=== PATIENT | female | born 1950 | race Hispanic/Latino ===

== ENCOUNTER 2017-08-05 16:05 | Inpatient (IN) | payer MEDICARE ==
[~2017-08-05] VITALS: Ht 160 cm; Wt 77.6 kg
[2017-08-05 16:26] LABS: BASOPHILS % (AUTO) 0.4 % (0.0-5.0); EOSINOPHILS % (AUTO) 0.5 % (0.0-8.0); MEAN CORPUSCULAR HEMOGLOBIN 31.1 pg (27.0-33.0); MEAN CORPUSCULAR HGB CONC 34.6 g/dL (32.0-36.0); MEAN CORPUSCULAR VOLUME 89.9 fL (79-99); MONOCYTES % (AUTO) 5.1 % (3.0-13.0); PLATELET COUNT (AUTO) 317 K/uL (130-400); RED BLOOD CELL COUNT(AUTO) 4.56 MIL/uL (4.00-5.50); RED CELL DISTRIBUTION WIDTH 12.6 % (11.0-15.5); WHITE BLOOD COUNT (AUTO) 10.2 K/uL (4.8-10.8)
[2017-08-05 16:29] LABS: CREATININE 0.9 mg/dL (0.5-1.5); POTASSIUM 4.3 mmol/L (3.5-5.1)
[2017-08-05 16:30] LABS: INR 0.96 (0.85-1.15); PARTIAL THROMBOPLASTIN TIME 26.9 SEC (26.3-35.5); PROTHROMBIN TIME 10.1 SEC (9.6-11.6)
[2017-08-05 16:51] LABS: B-TYPE NATRIURETIC PEPTIDE 19 pg/mL (0-100)
[2017-08-05 16:59] LABS: ALBUMIN 3.9 g/dL (3.5-5.0); BILIRUBIN,TOTAL 0.5 mg/dL (0.2-1.0); CREATINE KINASE MB 0.9 ng/mL (0.5-3.6); TOTAL PROTEIN, SERUM 8.4 g/dL (6.0-8.3)
[2017-08-05] MEDS ORDERED: ISOVUE-370 50ML VIAL IV ONE (17:14)
[2017-08-05] MEDS ORDERED: FUROSEMIDE 10 MG/ML 2ML VIAL ONE (23:55)
[2017-08-06] VITALS (7 sets, daily range): BP systolic 100–142; BP diastolic 38–79
[2017-08-06] MEDS ORDERED: SODIUM CHLORIDE 0.9% 10 ML VIAL IVP PRN (00:30)
[2017-08-06] MEDS ORDERED: TRAM50TA4 PO (00:42)
[2017-08-06] MEDS ORDERED: METF500T6 PO (00:42)
[2017-08-06] MEDS ORDERED: PREG75 PO (00:42)
[2017-08-06] MEDS ORDERED: TRAMADOL HCL 50 MG TABLET ONE (00:49)
[2017-08-06] MEDS ORDERED: PREGABALIN 75 MG CAPSULE ONE (00:50)
[2017-08-06] MEDS: SODIUM CHLORIDE 0.9% 10 ML VIAL IVP SCH ×3 (05:33→21:33)
[2017-08-06 06:05] LABS: HEMATOCRIT 37.2 % (36-48); MEAN CORPUSCULAR HEMOGLOBIN 31.2 pg (27.0-33.0); MEAN CORPUSCULAR HGB CONC 34.8 g/dL (32.0-36.0); MEAN CORPUSCULAR VOLUME 89.7 fL (79-99); PLATELET COUNT (AUTO) 286 K/uL (130-400); RED BLOOD CELL COUNT(AUTO) 4.15 MIL/uL (4.00-5.50); RED CELL DISTRIBUTION WIDTH 12.4 % (11.0-15.5); WHITE BLOOD COUNT (AUTO) 9.8 K/uL (4.8-10.8)
[2017-08-06 06:07] LABS: CREATININE 0.9 mg/dL (0.5-1.5)
[2017-08-06] MEDS ORDERED: FUROSEMIDE 10 MG/ML 2ML VIAL IVP SCH (09:00)
[2017-08-06] MEDS: PREGABALIN 75 MG CAPSULE PO SCH ×2 (09:13→21:33)
[2017-08-06] MEDS: TRAMADOL HCL 50 MG TABLET PO PRN ×2 (09:13→14:17)
[2017-08-06 15:19] LABS: MAGNESIUM 1.6 mg/dL (1.80-2.40); POTASSIUM 4.1 mmol/L (3.5-5.1)
[2017-08-06] MEDS ORDERED: MAGNESIUM 2GM PREMIX 50ML 50 ML IV SCH (19:00)
[2017-08-07] MEDS ORDERED: LEVO50TA11 PO (02:49)
[2017-08-07 04:00] VITALS: BP 127/70
[2017-08-07 05:32] LABS: BASOPHILS % (AUTO) 0.6 % (0.0-5.0); EOSINOPHILS % (AUTO) 1.1 % (0.0-8.0); HEMATOCRIT 37.2 % (36-48); MEAN CORPUSCULAR HEMOGLOBIN 31.4 pg (27.0-33.0); MEAN CORPUSCULAR HGB CONC 35.1 g/dL (32.0-36.0); MEAN CORPUSCULAR VOLUME 89.6 fL (79-99); NEUTROPHILS % (AUTO) 46.3 % (40.0-77.0); PLATELET COUNT (AUTO) 279 K/uL (130-400); RED BLOOD CELL COUNT(AUTO) 4.15 MIL/uL (4.00-5.50); RED CELL DISTRIBUTION WIDTH 12.5 % (11.0-15.5); WHITE BLOOD COUNT (AUTO) 10.2 K/uL (4.8-10.8)
[2017-08-07 05:44] LABS: INR 0.98 (0.85-1.15); PARTIAL THROMBOPLASTIN TIME 25.7 SEC (26.3-35.5); PROTHROMBIN TIME 10.1 SEC (9.6-11.6)
[2017-08-07] MEDS: SODIUM CHLORIDE 0.9% 10 ML VIAL IVP SCH ×3 (05:44→22:00)
[2017-08-07 07:00] VITALS: BP 110/61
[2017-08-07] MEDS: PREGABALIN 75 MG CAPSULE PO SCH ×2 (08:52→21:32)
[2017-08-07 11:00] VITALS: BP 122/68
[2017-08-07] MEDS ORDERED: LIDOCAINE HCL-MPF 1% 2ML VIAL ONE (13:54)
[2017-08-07] MEDS: TRAMADOL HCL 50 MG TABLET PO PRN ×2 (15:37→21:34)
[2017-08-07 17:33] LABS: APPEARANCE BODY FLUID CLOUDY (CLEAR); COLOR,BODY FLUID AMBER (LT YELLOW); SPECIMENTYPE,BODY FLUID PLEURAL FLUID
[2017-08-07 17:41] LABS: TOTAL VOLUME,BODY FLUID 280 mL
[2017-08-07 17:53] LABS: BODY FLUID WBC 660 /cu. mm.
[2017-08-07 17:54] LABS: BODY FLUID RBC 3875 /cu. mm.
[2017-08-07 17:57] LABS: GLUCOSE,BODY FLUID 208 mg/dL (1-40)
[2017-08-07 18:13] LABS: BF LYMPHOCYTE 95 %; BF MONOCYTE 5 %
[2017-08-07 19:07] VITALS: BP 118/68
[2017-08-07 20:00] VITALS: BP 139/69
[2017-08-08] VITALS (7 sets, daily range): BP systolic 116–139; BP diastolic 69–83
[2017-08-08] MEDS: SODIUM CHLORIDE 0.9% 10 ML VIAL IVP SCH ×3 (05:19→16:50)
[2017-08-08] MEDS: PREGABALIN 75 MG CAPSULE PO SCH ×2 (09:49→21:44)
[2017-08-08] MEDS: TRAMADOL HCL 50 MG TABLET PO PRN (09:50)
[2017-08-09 03:12] VITALS: BP 119/65
[2017-08-09 05:21] LABS: BASOPHILS % (AUTO) 0.4 % (0.0-5.0); EOSINOPHILS % (AUTO) 1.3 % (0.0-8.0); HEMATOCRIT 36.8 % (36-48); LYMPHOCYTES % (AUTO) 45.2 % (21.0-51.0); MEAN CORPUSCULAR HEMOGLOBIN 31.6 pg (27.0-33.0); MEAN CORPUSCULAR VOLUME 90.5 fL (79-99); MONOCYTES % (AUTO) 6.9 % (3.0-13.0); NEUTROPHILS % (AUTO) 46.2 % (40.0-77.0); PLATELET COUNT (AUTO) 260 K/uL (130-400); RED BLOOD CELL COUNT(AUTO) 4.07 MIL/uL (4.00-5.50); RED CELL DISTRIBUTION WIDTH 12.4 % (11.0-15.5); WHITE BLOOD COUNT (AUTO) 10.5 K/uL (4.8-10.8)
[2017-08-09 05:33] LABS: INR 0.98 (0.85-1.15); PROTHROMBIN TIME 10.1 SEC (9.6-11.6)
[2017-08-09 05:52] LABS: ALBUMIN 3.2 g/dL (3.5-5.0); BILIRUBIN,TOTAL 0.4 mg/dL (0.2-1.0); CREATININE 0.8 mg/dL (0.5-1.5); MAGNESIUM 2.3 mg/dL (1.80-2.40); PHOSPHORUS 3.4 mg/dL (2.5-4.9); POTASSIUM 3.8 mmol/L (3.5-5.1); THYROID STIMULATING HORMONE 2.98 uIU/mL (0.36-3.74)
[2017-08-09 07:20] VITALS: BP 119/69
[2017-08-09] MEDS: PREGABALIN 75 MG CAPSULE PO SCH ×2 (09:10→20:13)
[2017-08-09] MEDS: TRAMADOL HCL 50 MG TABLET PO PRN ×2 (09:11→20:14)
[2017-08-09 11:39] VITALS: BP 129/66
[2017-08-09] MEDS: SODIUM CHLORIDE 0.9% 10 ML VIAL IVP SCH (14:00)
[2017-08-09 15:00] VITALS: BP 133/82
[2017-08-09 19:30] VITALS: BP 136/110
[2017-08-09 23:20] VITALS: BP 137/76
[2017-08-10 03:25] VITALS: BP 116/71
[2017-08-10 05:42] LABS: HEMATOCRIT 34.4 % (36-48); MEAN CORPUSCULAR HEMOGLOBIN 32.4 pg (27.0-33.0); MEAN CORPUSCULAR HGB CONC 36.3 g/dL (32.0-36.0); MEAN CORPUSCULAR VOLUME 89.3 fL (79-99); PLATELET COUNT (AUTO) 249 K/uL (130-400); RED BLOOD CELL COUNT(AUTO) 3.86 MIL/uL (4.00-5.50); RED CELL DISTRIBUTION WIDTH 12.6 % (11.0-15.5); WHITE BLOOD COUNT (AUTO) 10.7 K/uL (4.8-10.8)
[2017-08-10 05:50] LABS: INR 0.98 (0.85-1.15); PARTIAL THROMBOPLASTIN TIME 27.1 SEC (26.3-35.5); PROTHROMBIN TIME 10.3 SEC (9.6-11.6)
[2017-08-10 05:59] LABS: CREATININE 0.9 mg/dL (0.5-1.5); MAGNESIUM 2.1 mg/dL (1.80-2.40); PHOSPHORUS 3.5 mg/dL (2.5-4.9); POTASSIUM 3.9 mmol/L (3.5-5.1)
[2017-08-10 07:00] VITALS: BP 112/67
[2017-08-10] MEDS: PREGABALIN 75 MG CAPSULE PO SCH ×2 (08:52→21:29)
[2017-08-10 11:41] VITALS: BP 97/53
[2017-08-10] MEDS: SODIUM CHLORIDE 0.9% 10 ML VIAL IVP SCH ×2 (14:00→21:30)
[2017-08-10 16:15] VITALS: BP 135/58
[2017-08-10] MEDS: TRAMADOL HCL 50 MG TABLET PO PRN (18:25)
[2017-08-10 20:00] VITALS: BP 138/68
[2017-08-10 23:42] VITALS: BP 132/74
[2017-08-11] MEDS: TRAMADOL HCL 50 MG TABLET PO PRN ×2 (01:19→14:15)
[2017-08-11 04:00] VITALS: BP 123/74
[2017-08-11] MEDS: SODIUM CHLORIDE 0.9% 10 ML VIAL IVP SCH ×3 (06:30→21:32)
[2017-08-11 08:04] VITALS: BP 118/73
[2017-08-11] MEDS: PREGABALIN 75 MG CAPSULE PO SCH ×2 (08:16→21:32)
[2017-08-11 11:29] VITALS: BP 112/74
[2017-08-11] MEDS: ENOXAPARIN SODIUM 40 MG/0.4 ML SYRINGE SQ SCH (14:16)
[2017-08-11] MEDS: LACTULOSE 20 GM/30 ML UDCUP PO PRN (14:16)
[2017-08-11 16:22] VITALS: BP 138/70
[2017-08-11 20:00] VITALS: BP 134/71
[2017-08-12] VITALS (7 sets, daily range): BP systolic 98–135; BP diastolic 56–77
[2017-08-12] MEDS: MORPHINE SULFATE 4 MG/1ML SYG IVP PRN (00:20)
[2017-08-12] MEDS: PREGABALIN 75 MG CAPSULE PO SCH ×2 (09:11→22:10)
[2017-08-12] MEDS: ENOXAPARIN SODIUM 40 MG/0.4 ML SYRINGE SQ SCH (09:12)
[2017-08-12] MEDS: TRAMADOL HCL 50 MG TABLET PO PRN (09:16)
[2017-08-12] MEDS: SODIUM CHLORIDE 0.9% 10 ML VIAL IVP SCH ×2 (14:00→22:10)
[2017-08-12] MEDS ORDERED: INSULIN HUMULIN R 100 UNIT/ML 3ML ONE (22:41)
[2017-08-12] MEDS: INSULIN HUMULIN R 100 UNIT/ML 3ML SQ SCH (22:43)
[2017-08-13] MEDS: MORPHINE SULFATE 4 MG/1ML SYG IVP PRN (02:13)
[2017-08-13 03:00] VITALS: BP 110/62
[2017-08-13] MEDS: SODIUM CHLORIDE 0.9% 10 ML VIAL IVP SCH ×3 (05:46→22:13)
[2017-08-13 08:10] VITALS: BP 132/69
[2017-08-13] MEDS: PREGABALIN 75 MG CAPSULE PO SCH ×2 (09:48→21:38)
[2017-08-13 11:59] VITALS: BP 102/49
[2017-08-13] MEDS: INSULIN HUMULIN R 100 UNIT/ML 3ML SQ SCH ×3 (12:55→21:00)
[2017-08-13 16:56] VITALS: BP 103/64
[2017-08-13] MEDS: LACTULOSE 20 GM/30 ML UDCUP PO PRN (17:25)
[2017-08-13 19:00] VITALS: BP 142/75
[2017-08-13 23:00] VITALS: BP 112/65
[2017-08-14 03:00] VITALS: BP 101/53
[2017-08-14] MEDS: SODIUM CHLORIDE 0.9% 10 ML VIAL IVP SCH ×2 (05:09→14:00)
[2017-08-14 05:26] LABS: CREATININE 0.8 mg/dL (0.5-1.5); POTASSIUM 3.9 mmol/L (3.5-5.1)
[2017-08-14 05:32] LABS: HEMATOCRIT 31.9 % (36-48); MEAN CORPUSCULAR HGB CONC 35.7 g/dL (32.0-36.0); MEAN CORPUSCULAR VOLUME 89.5 fL (79-99); PLATELET COUNT (AUTO) 273 K/uL (130-400); RED BLOOD CELL COUNT(AUTO) 3.57 MIL/uL (4.00-5.50); RED CELL DISTRIBUTION WIDTH 12.6 % (11.0-15.5); WHITE BLOOD COUNT (AUTO) 9.5 K/uL (4.8-10.8)
[2017-08-14 05:42] LABS: BAND NEUTROPHILS % (MANUAL) 3 % (0-2); EOSINOPHILS % (MANUAL) 2 % (1-6); LYMPHOCYTES % (MANUAL) 45 % (22-44); MAN.DIFF COMMENT-IMPRESSION MANUAL DIFFERENTIAL; MONOCYTES % (MANUAL) 2 % (2-9); PLATELET MORPHOLOGY COMMENT ADEQUATE; SEGMENTED NEUTROPHILS % 48 % (40-70)
[2017-08-14] MEDS: INSULIN HUMULIN R 100 UNIT/ML 3ML SQ SCH ×4 (06:26→20:54)
[2017-08-14 08:00] VITALS: BP 112/57
[2017-08-14] MEDS: PREGABALIN 75 MG CAPSULE PO SCH ×2 (09:12→20:54)
[2017-08-14 11:30] VITALS: BP 113/70
[2017-08-14 15:54] VITALS: BP 109/53
[2017-08-14 19:00] VITALS: BP 113/60
[2017-08-14] MEDS: TRAMADOL HCL 50 MG TABLET PO PRN (20:54)
[2017-08-14 23:00] VITALS: BP 123/73
[2017-08-15] VITALS (14 sets, daily range): BP systolic 106–124; BP diastolic 57–70
[2017-08-15] MEDS: INSULIN HUMULIN R 100 UNIT/ML 3ML SQ SCH ×4 (07:30→21:00)
[2017-08-15] MEDS ORDERED: LIDOCAINE HCL 1% MDV 50ML VIAL ONE (09:12)
[2017-08-15] MEDS ORDERED: ISOVUE-300 100 ML VIAL IV ONE (09:13)
[2017-08-15] MEDS ORDERED: LIDOCAINE HCL/EPINEPHRINE 50 ML VIAL IJ ONE (09:50)
[2017-08-15] MEDS ORDERED: CEFAZOLIN SODIUM 1 GM VIAL ONE (10:05)
[2017-08-15] MEDS ORDERED: MIDAZOLAM HCL 1 MG/ML 2ML VIAL ONE (10:14)
[2017-08-15] MEDS ORDERED: FENTANYL CITRATE PF 50 MCG/1 ML 2ML VIAL ONE (10:14)
[2017-08-15] MEDS: PREGABALIN 75 MG CAPSULE PO SCH ×2 (12:43→20:27)
[2017-08-15] MEDS: TRAMADOL HCL 50 MG TABLET PO PRN ×2 (12:43→20:33)
[2017-08-16 04:00] VITALS: BP 108/58
[2017-08-16] MEDS: INSULIN HUMULIN R 100 UNIT/ML 3ML SQ SCH ×2 (06:45→11:17)
[2017-08-16 07:46] VITALS: BP 129/65
[2017-08-16] MEDS: PREGABALIN 75 MG CAPSULE PO SCH (08:11)
[2017-08-16 11:19] VITALS: BP 119/53
== END 2017-08-16 15:57 | disposition home or self-care (01) | DRG 580 ==
LOC: EDH 16:05 → EDHIP 22:03 → 4BH 23:18
PROVIDERS: ADMIT Family Medicine; ATTEND Family Medicine
PROC: 0W9930Z Drainage of Right Pleural Cavity with Drainage Device, Percutaneous Approach (ICD-10-PCS; principal; 2017-08-15)
PROC: 0JH63WZ Insertion of Totally Implantable Vascular Access Device into Chest Subcutaneous Tissue and Fascia, Percutaneous Approach (ICD-10-PCS; 2017-08-15)
PROC: 02H633Z Insertion of Infusion Device into Right Atrium, Percutaneous Approach (ICD-10-PCS; 2017-08-15)
PROC: B2141ZZ Fluoroscopy of Right Heart using Low Osmolar Contrast (ICD-10-PCS; 2017-08-15)
PROC: B548ZZA Ultrasonography of Superior Vena Cava, Guidance (ICD-10-PCS; 2017-08-15)
DX: C50.911 Malignant neoplasm of unspecified site of right female breast (principal); J91.0 Malignant pleural effusion; E11.40 Type 2 diabetes mellitus with diabetic neuropathy, unspecified; J98.4 Other disorders of lung; E03.9 Hypothyroidism, unspecified; E78.5 Hyperlipidemia, unspecified; G89.29 Other chronic pain; I10 Essential (primary) hypertension; M89.8X9 Other specified disorders of bone, unspecified site; Z85.3 Personal history of malignant neoplasm of breast; Z90.10 Acquired absence of unspecified breast and nipple; Z91.19 Patient's noncompliance with other medical treatment and regimen
CPT/HCPCS: 32551; 36415; 36561; 71045; 71046; 71260; 77001; 78306; 80048; 80053; 82550; 82553; 82945; 82948; 83036; 83735; 83880; 84100; 84132; 84157; 84439; 84443; 84484; 85025; 85027; 85610; 85730; 87071; 87116; 87205; 87206; 88108; 88312; 89051; 93005; 93970; 99152; 99153; A9503; J0690; J1644; J1650; J1815; J1940; J2250; J2270; J3010; J3475; J3490; Q9967

== ENCOUNTER 2017-09-08 05:55 | Emergency (ER) | payer MEDICARE ==
[~2017-09-08 05:55] MED LIST: LEVO50TA11 PO; METF500T6 PO; PREG75 PO; TRAM50TA4 PO
[2017-09-08] MEDS ORDERED: FAMOTIDINE/PF 20 MG/2 ML VIAL IV ONE (06:28)
[2017-09-08] MEDS ORDERED: HYDROMORPHONE HCL 0.5 MG/0.5 ML ML ONE (06:29)
[2017-09-08] MEDS ORDERED: ONDANSETRON HCL MDV 20ML 2 MG/ML VIAL ONE (06:30)
[2017-09-08 06:34] LABS: BASOPHILS % (AUTO) 0.1 % (0.0-5.0); HEMATOCRIT 34.6 % (36-48); MEAN CORPUSCULAR HEMOGLOBIN 31.5 pg (27.0-33.0); MEAN CORPUSCULAR HGB CONC 35.4 g/dL (32.0-36.0); MEAN CORPUSCULAR VOLUME 88.9 fL (79-99); MONOCYTES % (AUTO) 2.5 % (3.0-13.0); NEUTROPHILS % (AUTO) 84.4 % (40.0-77.0); PLATELET COUNT (AUTO) 286 K/uL (130-400); RED CELL DISTRIBUTION WIDTH 12.8 % (11.0-15.5); WHITE BLOOD COUNT (AUTO) 8.1 K/uL (4.8-10.8)
[2017-09-08 06:41] LABS: CREATININE 0.7 mg/dL (0.5-1.5); POTASSIUM 3.8 mmol/L (3.5-5.1)
[2017-09-08] MEDS ORDERED: SODIUM CHLORIDE 0.9% 1000ML 1,000 ML IV ONE (06:48)
[2017-09-08 06:56] LABS: BILIRUBIN,TOTAL 0.5 mg/dL (0.2-1.0); TOTAL PROTEIN, SERUM 8.2 g/dL (6.0-8.3)
[2017-09-08 07:05] LABS: APPEARANCE,URINE CLEAR (CLEAR); BILIRUBIN,URINE NEGATIVE (NEGATIVE); COLOR,URINE YELLOW (YELLOW); GLUCOSE, URINE (UA) 250 mg/dL (NEGATIVE); KETONES,URINE 15 mg/dL (NEGATIVE); LEUKOCYTE ESTERASE ,URINE NEGATIVE (NEGATIVE); NITRATE,URINE NEGATIVE (NEGATIVE); OCCULT BLOOD,URINE NEGATIVE (NEGATIVE); PH,URINE 5.5 (5.0-8.0); PROTEIN,URINE TRACE (NEGATIVE); UROBILINOGEN,URINE 0.2 mg/dL (0.2-1.0)
[2017-09-08 07:10] LABS: INR 0.98 (0.85-1.15); PARTIAL THROMBOPLASTIN TIME 25.9 SEC (26.3-35.5); PROTHROMBIN TIME 10.3 SEC (9.6-11.6)
[2017-09-08 07:10] LABS: RBC,URINE 0-1 /HPF (0-1); WBC,URINE 0-1 /HPF (0-1)
[2017-09-08 07:11] LABS: BACTERIA,URINE Rare /HPF (None Seen); SQUAMOUS EPITHELIAL CELL,UR Rare /HPF (0-2)
== END 2017-09-08 08:33 | disposition home or self-care (01) ==
LOC: EDH 05:55
DX: R11.2 Nausea with vomiting, unspecified (principal); T45.1X5A Adverse effect of antineoplastic and immunosuppressive drugs, initial encounter; R10.13 Epigastric pain; E11.65 Type 2 diabetes mellitus with hyperglycemia; C50.919 Malignant neoplasm of unspecified site of unspecified female breast; Z88.6 Allergy status to analgesic agent; Z90.49 Acquired absence of other specified parts of digestive tract; Y92.89 Other specified places as the place of occurrence of the external cause
CPT/HCPCS: 36415; 71045; 80053; 81001; 82150; 82550; 82553; 83690; 84484; 85025; 85610; 85730; 93005; 96361 ×2; 96374; 96375; 99285; J1170; J3490; J7030

== ENCOUNTER → 2018-12-13 | Outpatient (CLI) | payer MEDICARE ==
[~2018-12-13] MED LIST changes: +ALBUTEROL SULFATE 0.083% 2.5 MG/3 ML INH IH ONE; +METF-444 PO; -METF500T6 PO
== END | disposition home or self-care (01) ==
LOC: RESP 10:09
PROVIDERS: ATTEND Dentist Oral and Maxillofacial Pathology
DX: C34.90 Malignant neoplasm of unspecified part of unspecified bronchus or lung (principal); M81.0 Age-related osteoporosis without current pathological fracture
CPT/HCPCS: 36415; 82523; 94060; 94727; 94729

== ENCOUNTER 2020-01-11 08:20 | Inpatient (IN) | payer MEDICARE ==
[~2020-01-11 08:20] MED LIST changes: -ALBUTEROL SULFATE 0.083% 2.5 MG/3 ML INH IH ONE
[2020-01-11 08:35] LABS: BASOPHILS % (AUTO) 0.5 % (0.0-5.0); EOSINOPHILS % (AUTO) 2.9 % (0.0-8.0); HEMATOCRIT 29.1 % (36-48); LYMPHOCYTES % (AUTO) 28.1 % (21.0-51.0); MEAN CORPUSCULAR HEMOGLOBIN 33.7 pg (27.0-33.0); MEAN CORPUSCULAR HGB CONC 33.3 g/dL (32.0-36.0); MONOCYTES % (AUTO) 10.6 % (3.0-13.0); NEUTROPHILS % (AUTO) 57.6 % (40.0-77.0); PLATELET COUNT (AUTO) 204 K/uL (130-400); RED BLOOD CELL COUNT(AUTO) 2.88 MIL/uL (4.00-5.50); WHITE BLOOD COUNT (AUTO) 6.2 K/uL (4.8-10.8)
[2020-01-11 08:47] LABS: INR 0.94 (0.85-1.15); PARTIAL THROMBOPLASTIN TIME 24.5 SEC (26.3-35.5); PROTHROMBIN TIME 10.2 SEC (9.6-11.6)
[2020-01-11 08:50] LABS: CREATININE 1.7 mg/dL (0.5-1.5); POTASSIUM 4.5 mmol/L (3.5-5.1)
[2020-01-11 08:57] LABS: ALBUMIN 4.2 g/dL (3.5-5.0); BILIRUBIN,TOTAL 0.3 mg/dL (0.2-1.0); TOTAL PROTEIN, SERUM 7.7 g/dL (6.0-8.3)
[2020-01-11] MEDS ORDERED: ASPIRIN 325MG EC TAB 325 MG TABLET.DR PO ONE (09:23)
[2020-01-11 10:11] LABS: APPEARANCE,URINE Clear (CLEAR); BILIRUBIN,URINE Negative (NEGATIVE); COLOR,URINE Yellow (YELLOW); GLUCOSE, URINE (UA) 250 mg/dL (NEGATIVE); KETONES,URINE Negative (NEGATIVE); LEUKOCYTE ESTERASE ,URINE Negative (NEGATIVE); NITRATE,URINE Negative (NEGATIVE); OCCULT BLOOD,URINE Negative (NEGATIVE); PROTEIN,URINE Negative (NEGATIVE); UROBILINOGEN,URINE 0.2 mg/dL (0.2-1.0)
[2020-01-11 10:18] LABS: AMPHET/METH SCREEN,URINE NEGATIVE (NEGATIVE); BARBITURATE SCREEN, URINE NEGATIVE (NEGATIVE); BENZODIAZEPINES SCREEN,URINE NEGATIVE (NEGATIVE); CANNABINOID SCREEN,URINE NEGATIVE (NEGATIVE); COCAINE SCREEN,URINE NEGATIVE (NEGATIVE); OPIATE SCREEN,URINE NEGATIVE (NEGATIVE); PHENCYCLIDINE SCREEN,URINE NEGATIVE (NEGATIVE)
[2020-01-11 10:28] LABS: BACTERIA,URINE Few /HPF (None Seen); RBC,URINE 0-1 /HPF (0-1)
[2020-01-11 10:29] LABS: WBC,URINE 0-1 /HPF (0-1)
[2020-01-11] MEDS ORDERED: GLUCAGON 1MG KIT 1 MG ML IM PRN (11:30)
[2020-01-11] MEDS ORDERED: LABETALOL 20 MG/4 ML DISP.SYRIN IV PRN (11:30)
[2020-01-11] MEDS ORDERED: ACETAMINOPHEN EXTENDED RELEASE 650 MG TABLET PO PRN (11:30)
[2020-01-11] MEDS ORDERED: DEXTROSE 50%-WATER 50 ML DISP.SYRIN IV PRN (11:30)
[2020-01-11] MEDS: INSULIN HUMULIN R 100 UNIT/ML 3ML SQ SCH ×3 (11:30→21:00)
[2020-01-11] MEDS: SODIUM CHLORIDE 0.9% 1000ML 1,000 ML IV SCH (11:30)
--- NOTE | 2020-01-11 13:30 | NUR ---
COGNITIVE-LINGUISTIC EVALUATION COMPLETED. Pt PRESENTS WITH MILD DYSARTHRIA. EVALUATION: Pt AAOX3. Pt REQUESTS WANTS AND NEEDS INDEPENDENTLY. Pt INTELLIGIBLE AT 80% ACCURACY TO THE UNFAMILIAR LISTENER IN RUNNING SPEECH. PT PRESENTS WITH MILD DYSARTHRIA (LINGUAL DEVIATION TO LEFT). Pt COMMUNICATING AT CONVERSATIONAL LEVEL. Pt COMPLETED COGNITIVE-LINGUISTIC EVALUATION TARGETING: ORIENTATION, ATTENTION/CONCENTRATION, MEMORY (IMMEDIATE, SHORT-TERM AND LONG-TERM), PROBLEM SOLVING, LOGIC/REASONING/INFERENCE, THOUGHT ORGANIZATION, FUNCTIONAL MATH AND TELLING TIME. SKILLED SPEECH THERAPY IS RECOMMENDED TARGETING MOTOR SPEECH. RECOMMENDATIONS: 1. SKILLED SPEECH THERAPY 1-5XWK TARGETING MOTOR SPEECH GOALS: LTG1: Pt WILL BE INTELLIGIBLE IN ALL SETTINGS WITH 100% ACCURACY. STG1: Pt WILL COMPLETE ORAL MOTOR EXERCISES WITH 80% ACCURACY. STG2: Pt WILL COMPLETE SPEECH CLARITY TECHNIQUES AT SENTENCE LEVEL WITH 80% ACCURACY. STG3: Pt WILL COMPLETE SMRs/AMRs WITH 80% ACCURACY. STG4: SKILLED EDUCATION Pt/FAMILY/STAFF. MOTOR SPEECH G-CODES: [id number] Addendum: 01/11/20 at 1448 by JAMIN URIAS [facility] Amended: Links added.
--- NOTE | 2020-01-11 13:30 | NUR ---
DYSPHAGIA EVAL COMPLETED. -S/S OF ASPIRATION. REGULAR TEXTURE, THIN LIQUIDS; PILLS WHOLE WITH LIQUIDS. Addendum: 01/11/20 at 1456 by JAMIN URIAS, [facility] Amended: Links added.
--- NOTE | 2020-01-11 15:16 | NUR ---
patient still in ER department, awaiting for patient's to be transferred to medical floor in order to be able to initiate skilled Physical Therapy as ordered by Ange Muñoz NP Addendum: 01/11/20 at 1524 by SKYLER REYNAGA, PT PT Amended: Links added.
[2020-01-11 17:00] VITALS: BP 137/56
[2020-01-11 20:47] VITALS: BP 174/71
[2020-01-12 00:14] VITALS: BP 161/74
[2020-01-12] MEDS: SODIUM CHLORIDE 0.9% 1000ML 1,000 ML IV SCH (03:25)
[2020-01-12 03:59] VITALS: BP 172/71
[2020-01-12] MEDS: INSULIN HUMULIN R 100 UNIT/ML 3ML SQ SCH ×4 (05:44→20:16)
[2020-01-12 06:14] LABS: HEMATOCRIT 30.1 % (36-48); MEAN CORPUSCULAR HEMOGLOBIN 34.1 pg (27.0-33.0); MEAN CORPUSCULAR HGB CONC 34.6 g/dL (32.0-36.0); MEAN CORPUSCULAR VOLUME 98.7 fL (79-99); RED BLOOD CELL COUNT(AUTO) 3.05 MIL/uL (4.00-5.50); RED CELL DISTRIBUTION WIDTH 12.4 % (11.0-15.5); WHITE BLOOD COUNT (AUTO) 6.8 K/uL (4.8-10.8)
[2020-01-12 06:15] LABS: HEMOGLOBIN A1C 7.6 % (4.0-6.0)
[2020-01-12 06:18] LABS: INR 0.97 (0.85-1.15); PROTHROMBIN TIME 10.5 SEC (9.6-11.6)
[2020-01-12 06:52] LABS: ALANINE AMINOTRANSFERASE 22 U/L (12-78); ALBUMIN 3.9 g/dL (3.5-5.0); ASPARTATE AMINOTRANSFERASE 22 U/L (10-37); BILIRUBIN,TOTAL 0.5 mg/dL (0.2-1.0); CARBON DIOXIDE 29 mmol/L (21-32); CHLORIDE 104 mmol/L (101-111); CHOLESTEROL 177 mg/dL (<200); CREATINE KINASE, TOTAL 118 U/L (21-232); CREATININE 1.2 mg/dL (0.5-1.5); GLOMERULAR FILTR. RATE CALC 47 mL/min (>60); GLUCOSE,RANDOM 108 mg/dL (70-105); HDL CHOLESTEROL 39 mg/dL (35-85); LDL DIRECT 111 mg/dL (0-99); MYOGLOBIN 101 ng/mL (10-92); SODIUM SERUM 140 mmol/L (136-145); TOTAL PROTEIN, SERUM 7.5 g/dL (6.0-8.3); TRIGLYCERIDES 154 mg/dL (30-200); TROPONIN I < 0.04 ng/mL (0.00-0.06); UREA NITROGEN, BLOOD 15 mg/dL (7-18)
[2020-01-12 08:00] VITALS: BP 117/52
[2020-01-12] MEDS: ASPIRIN 81MG TAB.CHEW PO SCH (08:27)
[2020-01-12] MEDS ORDERED: PANTOPRAZOLE 40 MG/VIAL IVP SCH (09:00)
[2020-01-12] MEDS ORDERED: PREGABALIN 75 MG CAPSULE PO SCH (10:30)
[2020-01-12] MEDS ORDERED: CARVEDILOL 12.5 MG TABLET PO SCH (11:30)
[2020-01-12 12:00] VITALS: BP 137/65
--- NOTE | 2020-01-12 12:55 | NUR ---
INITIAL SW spoke with patient. Patient lives alone but states her son, Galindo Nolasco Jr, lives right next door. She has no home health but does have PHC with [facility] 24.5 hours a week. DME: rollator, shower chair, BPM, glucometer (no insulin), Patient is able to complete ADL's independently and drives. PCP is Dr. Galdino Velez. Pharmacy is [facility] located on [facility] in [place]. No safety concerns voiced by patient on returning home. DCP is home. Addendum: 01/12/20 at 1258 by DAYSI ANDERSON SS Amended: Links added.
--- NOTE | 2020-01-12 14:10 | NUR ---
SPEECH THERAPY TREATMENT COMPLETED S: Pt COOPERATIVE WITH THERAPEUTIC GOALS. 0: Pt CURRENTLY TARGETING MOTOR SPEECH GOALS: 1. Pt INTELLIGIBLE IN ALL SETTINGS WITH 90% ACCURACY. 2. Pt COMPLETED ORAL MOTOR EXERCISES WITH 100% ACCURACY. 3. Pt COMPLETED SPEECH CLARITY TECHNIQUES AT SENTENCE LEVEL WITH 90% ACCURACY. 4. Pt COMPLETED SMRS/AMRS WITH 100% ACCURACY. 5. SKILLED EDUCATION Pt/FAMILY/STAFF: COMPLETED A: EXPANDER PROVIDED MIN TO NO CUES DURING THERAPEUTIC TRIALS. Pt VOICED UNDERSTANDING OF IMPORTANCE OF SPEECH THERAPY AND AWARENESS OF S/S OF ASPIRATION. P: RECOMMEND THE CONTINUATION OF SPEECH THERAPY. EXPANDER COORDINATED WITH NURSE HAMMER. EXPANDER WILL CONTINUE TO FOLLOW Pt DURING THE LENGTH OF STAY IN THE HOSPITAL. Addendum: 01/12/[address] AIME PRADHAN Amended: Links added.
--- NOTE | 2020-01-12 14:10 | NUR ---
FOLLOW UP COMPLETED. NURSING CARE PARTNER COORDINATED WITH NURSE HAMMER. Pt TOLERATING DIET RECOMMENDATIONS WITH NO S/S OF ASPIRATION AT THIS TIME. CONTINUE WITH PLAN OF CARE TOLERATED. Addendum: 01/12/[address] AIME PRADHAN Amended: Links added.
[2020-01-12 16:00] VITALS: BP 141/50
[2020-01-12] MEDS ORDERED: HYDRALAZINE HCL 20 MG/ML VIAL IV PRN (17:45)
[2020-01-12 20:14] VITALS: BP 137/65
[2020-01-12] MEDS: HYDRALAZINE HCL 25 MG TABLET PO SCH (20:21)
[2020-01-12] MEDS: TRAMADOL HCL 50 MG TABLET PO PRN (20:21)
[2020-01-12] MEDS: PREGABALIN 75 MG CAPSULE PO SCH (20:21)
[2020-01-12] MEDS ORDERED: CARVEDILOL 3.125 MG TABLET PO SCH (21:00)
[2020-01-13 00:01] VITALS: BP 149/53
[2020-01-13] MEDS: SODIUM CHLORIDE 0.9% 1000ML 1,000 ML IV SCH ×2 (02:32→19:16)
[2020-01-13 04:03] VITALS: BP 155/70
[2020-01-13] MEDS: INSULIN HUMULIN R 100 UNIT/ML 3ML SQ SCH ×4 (05:23→19:56)
[2020-01-13 06:05] VITALS: BP 151/49
[2020-01-13 06:50] LABS: BASOPHILS % (AUTO) 0.5 % (0.0-5.0); EOSINOPHILS % (AUTO) 3.6 % (0.0-8.0); HEMATOCRIT 26.4 % (36-48); LYMPHOCYTES % (AUTO) 34.3 % (21.0-51.0); MEAN CORPUSCULAR HEMOGLOBIN 34.1 pg (27.0-33.0); MEAN CORPUSCULAR HGB CONC 34.8 g/dL (32.0-36.0); MEAN CORPUSCULAR VOLUME 97.8 fL (79-99); MONOCYTES % (AUTO) 10.7 % (3.0-13.0); NEUTROPHILS % (AUTO) 50.7 % (40.0-77.0); PLATELET COUNT (AUTO) 170 K/uL (130-400); RED CELL DISTRIBUTION WIDTH 12.6 % (11.0-15.5); WHITE BLOOD COUNT (AUTO) 5.6 K/uL (4.8-10.8)
[2020-01-13 07:10] LABS: CREATININE 1.3 mg/dL (0.5-1.5); MAGNESIUM 1.7 mg/dL (1.80-2.40); POTASSIUM 3.8 mmol/L (3.5-5.1)
[2020-01-13] MEDS: HYDRALAZINE HCL 25 MG TABLET PO SCH ×2 (09:20→20:38)
[2020-01-13] MEDS: PREGABALIN 75 MG CAPSULE PO SCH ×2 (09:20→20:38)
[2020-01-13] MEDS: ASPIRIN 81MG TAB.CHEW PO SCH (09:20)
[2020-01-13] MEDS: PANTOPRAZOLE SODIUM 40 MG TABLET.DR PO SCH (09:22)
[2020-01-13] MEDS: TRAMADOL HCL 50 MG TABLET PO PRN ×2 (09:25→20:38)
[2020-01-13 10:28] VITALS: BP 146/70
[2020-01-13] MEDS: LISINOPRIL 5 MG TABLET PO SCH (11:19)
[2020-01-13 15:19] VITALS: BP 104/65
[2020-01-13 20:37] VITALS: BP 153/72
[2020-01-13] MEDS: ENOXAPARIN SODIUM 40 MG/0.4 ML SYRINGE SQ SCH (20:38)
[2020-01-13] MEDS: ATORVASTATIN CALCIUM 20 MG TABLET PO SCH (20:38)
[2020-01-14] VITALS (7 sets, daily range): BP systolic 119–164; BP diastolic 49–77
[2020-01-14 05:29] LABS: BASOPHILS % (AUTO) 0.3 % (0.0-5.0); EOSINOPHILS % (AUTO) 3.7 % (0.0-8.0); HEMATOCRIT 27.4 % (36-48); LYMPHOCYTES % (AUTO) 32.3 % (21.0-51.0); MEAN CORPUSCULAR HEMOGLOBIN 33.7 pg (27.0-33.0); MEAN CORPUSCULAR HGB CONC 34.7 g/dL (32.0-36.0); MEAN CORPUSCULAR VOLUME 97.2 fL (79-99); NEUTROPHILS % (AUTO) 53.4 % (40.0-77.0); PLATELET COUNT (AUTO) 177 K/uL (130-400); RED BLOOD CELL COUNT(AUTO) 2.82 MIL/uL (4.00-5.50); RED CELL DISTRIBUTION WIDTH 12.3 % (11.0-15.5); WHITE BLOOD COUNT (AUTO) 5.9 K/uL (4.8-10.8)
[2020-01-14] MEDS: INSULIN HUMULIN R 100 UNIT/ML 3ML SQ SCH ×4 (05:30→20:23)
[2020-01-14 05:58] LABS: % IRON SATURATION 24.2 % (22-44)
[2020-01-14 06:17] LABS: CARBON DIOXIDE 29 mmol/L (21-32); CHLORIDE 105 mmol/L (101-111); CREATININE 1.3 mg/dL (0.5-1.5); GLOMERULAR FILTR. RATE CALC 43 mL/min (>60); GLUCOSE,RANDOM 122 mg/dL (70-105); SODIUM SERUM 142 mmol/L (136-145); UREA NITROGEN, BLOOD 18 mg/dL (7-18)
[2020-01-14] MEDS: PANTOPRAZOLE SODIUM 40 MG TABLET.DR PO SCH (06:34)
[2020-01-14] MEDS: HYDRALAZINE HCL 25 MG TABLET PO SCH ×2 (09:55→20:27)
[2020-01-14] MEDS: ASPIRIN 81MG TAB.CHEW PO SCH (09:55)
[2020-01-14] MEDS: PREGABALIN 75 MG CAPSULE PO SCH ×2 (09:55→20:27)
[2020-01-14] MEDS: LISINOPRIL 5 MG TABLET PO SCH (09:56)
[2020-01-14] MEDS: ENOXAPARIN SODIUM 40 MG/0.4 ML SYRINGE SQ SCH (09:56)
--- NOTE | 2020-01-14 15:14 | NUR ---
SPEECH THERAPY TREATMENT COMPLETED S: Pt COOPERATIVE WITH THERAPEUTIC GOALS. Pt SEATED AT 90 DEGREES IN BED AT THE TIME OF THE SESSION. 0: Pt CURRENTLY TARGETING MOTOR SPEECH GOALS: 1. Pt INTELLIGIBLE IN ALL SETTINGS WITH 90% ACCURACY. 2. Pt COMPLETED ORAL MOTOR EXERCISES WITH 100% ACCURACY. 3. Pt COMPLETED SPEECH CLARITY TECHNIQUES AT SENTENCE LEVEL WITH 90% ACCURACY. 4. Pt COMPLETED SMRS/AMRS WITH 100% ACCURACY. 5. SKILLED EDUCATION Pt/FAMILY/STAFF: COMPLETED A: MEDICAL OFFICE CLERK PROVIDED MIN TO NO CUES DURING THERAPEUTIC TRIALS. Pt VOICED UNDERSTANDING OF IMPORTANCE OF SPEECH THERAPY AND AWARENESS OF S/S OF ASPIRATION. Pt WITH IMPROVED OVERALL INTELLIGIBILITY. P: RECOMMEND THE CONTINUATION OF SPEECH THERAPY 1-5XWK. MEDICAL OFFICE CLERK COORDINATED WITH NURSE. MEDICAL OFFICE CLERK WILL CONTINUE TO FOLLOW Pt DURING THE LENGTH OF STAY IN THE HOSPITAL. A WORKSHEET WITH EXERCISES PROVIDED (HOME PROGRAM) TO BE COMPLETED 10 TIMES EACH. SHE VERBALIZED UNDERSTANDING AND COMPLIANCE WITH RECOMMENDATIONS. Addendum: 01/14/20 at [address] [facility] Amended: Links added.
--- NOTE | 2020-01-14 16:18 | NUR ---
NUTRITION WELD ENGINEER-Assisted nutrition education. Stroke Nutrition Therapy handout faxed to [phone] ([phone]). Called unit, no answer. NUTRITION NOTE: Pt tolerating 75gm CC diet order with no report of GI distress. Pt reports eating at around 75% PO intake with no food allergies. Pt with no additional questions. Monitored labs: BG 148, Mg 1.70, GFR 43, LDL 111. Recommend Low fat diet modification RD to continue to monitor. Please notify RD as additional nutrition concerns arise. Thank you. Addendum: 01/14/20 at [address] RD Amended: Links added.
[2020-01-14] MEDS: SODIUM CHLORIDE 0.9% 1000ML 1,000 ML IV SCH (19:30)
[2020-01-14] MEDS: TRAMADOL HCL 50 MG TABLET PO PRN (20:27)
[2020-01-14] MEDS: ATORVASTATIN CALCIUM 20 MG TABLET PO SCH (20:27)
[2020-01-15 03:34] VITALS: BP 138/47
[2020-01-15] MEDS: PANTOPRAZOLE SODIUM 40 MG TABLET.DR PO SCH (05:46)
[2020-01-15] MEDS: INSULIN HUMULIN R 100 UNIT/ML 3ML SQ SCH ×2 (05:59→11:30)
[2020-01-15] MEDS: ASPIRIN 81MG TAB.CHEW PO SCH (08:27)
[2020-01-15] MEDS: PREGABALIN 75 MG CAPSULE PO SCH (08:28)
[2020-01-15] MEDS: LISINOPRIL 5 MG TABLET PO SCH (08:28)
[2020-01-15] MEDS: ENOXAPARIN SODIUM 40 MG/0.4 ML SYRINGE SQ SCH (08:29)
[2020-01-15] MEDS: HYDRALAZINE HCL 25 MG TABLET PO SCH (08:30)
[2020-01-15] MEDS: TRAMADOL HCL 50 MG TABLET PO PRN (08:31)
[2020-01-15 08:42] VITALS: BP 150/58
[2020-01-15] MEDS ORDERED: SIMETHICONE 80 MG TAB.CHEW PO PRN (08:45)
[2020-01-15 11:50] VITALS: BP 146/53
[2020-01-15] MEDS ORDERED: ASPI-1197 PO (15:39)
[2020-01-15] MEDS ORDERED: ATOR40TA69 PO (15:39)
[2020-01-15] MEDS ORDERED: CLOP75TA32 PO (15:39)
== END 2020-01-15 15:54 | disposition home or self-care (01) | DRG 65 ==
LOC: EDH 08:20 → EDHIP 08:21 → 4AH 17:00
PROVIDERS: ADMIT Hospitalist; ATTEND Hospitalist
DX: I63.9 Cerebral infarction, unspecified (principal); N17.9 Acute kidney failure, unspecified; E11.65 Type 2 diabetes mellitus with hyperglycemia; E11.9 Type 2 diabetes mellitus without complications; Z85.118 Personal history of other malignant neoplasm of bronchus and lung; D64.9 Anemia, unspecified; E03.9 Hypothyroidism, unspecified; E78.5 Hyperlipidemia, unspecified; I10 Essential (primary) hypertension; J45.909 Unspecified asthma, uncomplicated; Z85.3 Personal history of malignant neoplasm of breast; R00.1 Bradycardia, unspecified
CPT/HCPCS: 36415; 70450; 70544; 70551; 71045; 73502; 80048; 80053; 80061; 80305; 81001; 82550; 82607; 82746; 82948; 83036; 83540; 83550; 83605; 83721; 83735; 83874; 84484; 85025; 85027; 85610; 85730; 87040; 92507; 92522; 92610; 93005; 93306; 93880; 93971; 97039; C9113; G0378; J1650; J1815